=== PATIENT | male | born 1975 | race Caucasian/White ===

== ENCOUNTER 2018-04-11 14:38 | Emergency (ER) | payer OTHER ==
[~2018-04-11] VITALS: Ht 172.7 cm; Wt 73.5 kg
[2018-04-11] MEDS ORDERED: TYLENOL EXTRA500 MG (15:34)
== END 2018-04-11 21:28 | disposition home or self-care (01) ==
LOC: ER 14:38
DX: N30.80 Other cystitis without hematuria (principal); K40.90 Unilateral inguinal hernia, without obstruction or gangrene, not specified as recurrent

== ENCOUNTER 2018-04-13 10:47 | Emergency (ER) | payer OTHER ==
[~2018-04-13] VITALS: Ht 172.7 cm; Wt 72.6 kg
[~2018-04-13 10:47] MED LIST: TYLENOL EXTRA500 MG
== END 2018-04-13 15:21 | disposition home or self-care (01) ==
LOC: ER 10:47
DX: K40.90 Unilateral inguinal hernia, without obstruction or gangrene, not specified as recurrent (principal)